=== PATIENT | male | born 1970 | race Caucasian/White ===

== ENCOUNTER → 2021-09-27 09:22 | Outpatient (BNVA) | payer BC, SELFPAY | PROVIDERS: Visit Provider Nurse Practitioner Family | DX: Z20.822 Contact with and (suspected) exposure to COVID-19 (principal) | CPT/HCPCS: 87635 ==

== ENCOUNTER → 2022-08-17 09:22 | Outpatient (BNVA) | payer BC, SELFPAY | PROVIDERS: PCP Clinical Nurse Specialist Adult Health; Visit Provider Clinical Nurse Specialist Adult Health | DX: B34.9 Viral infection, unspecified (principal); J02.9 Acute pharyngitis, unspecified; J44.1 Chronic obstructive pulmonary disease with (acute) exacerbation | CPT/HCPCS: 87400; 87880 ==

== ENCOUNTER 2022-09-14 08:14 | Emergency (ER) | payer BC, SELFPAY ==
[2022-09-14 08:21] VITALS: BP 125/82; PULSE 77; RESP 18; TEMP 36.8; O2SAT 98; BMI 29.3
[2022-09-14 08:26] VITALS: BP 121/80; PULSE 69; RESP 16; O2SAT 98
--- NOTE | 2022-09-14 08:47 | CTR_ITS ---
PROCEDURE INFORMATION: Exam: CT Abdomen And Pelvis With Contrast Exam date and time: 09/14/2022 8:53 AM Age: 51 years old Clinical indication: Nausea; Abdominal pain; Localized; Left upper quadrant (luq); Prior surgery; Surgery type: Spinal stimulator; Additional info: Luq pain, nausea and blood in stool TECHNIQUE: Imaging protocol: Computed tomography of the abdomen and pelvis with contrast. Radiation optimization: All CT scans at this facility use at least one of these dose optimization techniques: automated exposure control; mA and/or kV adjustment per patient size (includes targeted exams where dose is matched to clinical indication); or iterative reconstruction. Contrast material: OMNI 350; Contrast volume: 100 ml; Contrast route: INTRAVENOUS (IV); COMPARISON: No relevant prior studies available. RADIATION DOSE METRICS: Total DLP (mGy-cm): 848.09 FINDINGS: Tubes, catheters and devices: Neurostimulator wires are present in the thoracic canal. Liver: Normal. No mass. Gallbladder and bile ducts: Cholecystectomy. Normal bile ducts. Pancreas: Normal. No ductal dilation. Spleen: Normal. No splenomegaly. Adrenal glands: Normal. No mass. Kidneys and ureters: Normal. No hydronephrosis. Stomach and bowel: There are few sigmoid diverticuli. No diverticulitis. No bowel obstruction or dilatation. Appendix: No evidence of appendicitis. Intraperitoneal space: Unremarkable. No free air. No significant fluid collection. Vasculature: Unremarkable. No abdominal aortic aneurysm. Lymph nodes: Unremarkable. No enlarged lymph nodes. Urinary bladder: Unremarkable as visualized. Reproductive: Unremarkable as visualized. Bones/joints: Chronic degenerative changes are present in the spine. No acute bony abnormality. Soft tissues: Unremarkable. CT/CT abdomen pelvis w con* [id number] IMPRESSION: No acute abnormality.
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
[2022-09-14 08:55] LABS: Basophils % 0.4 %; Eosinophils # 0.2 10^3/uL (0.0-0.8); Eosinophils % 1.4 %; Hematocrit 46.1 % (42.0-52.0); Hemoglobin 15.3 g/dL (11.7-16.6); Lymphocytes # 2.3 10^3/uL (0.8-4.8); Lymphocytes % 20.5 %; Mean Corpuscular HGB Conc 33.2 g/dL (30.0-36.0); Mean Corpuscular Hemoglobin 32.2 pg (28.0-34.0); Mean Corpuscular Volume 97.1 fl (80-94); Mean Platelet Volume 11.6 fL (7.4-10.4); Monocytes # 0.7 10^3/uL (0.2-0.9); Monocytes % 5.8 %; Neutrophils % 71.5 %; Nucleated Red Blood Cells % 0 %; Platelet Count 238 10^3/cmm (130-400); Red Blood Count 4.75 10^6/uL (4.1-5.3); Red Cell Distribution Width 13.6 % (12.1-15.1); White Blood Count 11.3 10^3/uL (4.0-10.0)
[2022-09-14] MEDS: iohexol 350 mg/mL 500 mL Btl (per mL) IV (08:57)
[2022-09-14 09:12] VITALS: RESP 16; O2SAT 98
[2022-09-14] MEDS: ondansetron 2 mg/ML SDV 2 mL 4 MG IVP (09:12)
[2022-09-14] MEDS: morphine 4 mg/mL SDV 1 mL IVP (09:12)
[2022-09-14] MEDS: sodium chloride 0.9% 1,000 ML 999 ML IV (09:12)
[2022-09-14 09:16] LABS: Alanine Aminotransferase 19 U/L (0-41); Albumin Level 4.7 g/dL (3.5-5.2); Alkaline Phosphatase 83 U/L (40-130); Anion Gap 13.4 (5-19); Aspartate Amino Transferase 21 U/L (0-40); Blood Urea Nitrogen 13 mg/dL (6-20); Calcium 9.3 mg/dL (8.5-10.5); Carbon Dioxide 24 mmol/L (22-29); Chloride 105 mmol/L (98-107); Creatinine Clr Calc Pharmacy 147.4604; Globulin 2.4 g/dL (1.3-4.6); Glomerular Filtration Rate 102.7 mL/min (90-130); Glucose 88 mg/dL (65-115); Lipase 35 U/L (13-60); Osmolality Calculated 286 mOsm/kg (285-295); Potassium 4.4 mmol/L (3.5-5.1); Sodium 138 mmol/L (136-145); Total Bilirubin 0.3 mg/dL (0.15-1.2); Total Protein 7.1 g/dL (6.6-8.7)
[2022-09-14 09:23] VITALS: BP 129/86; PULSE 51; RESP 16; O2SAT 100
[2022-09-14 09:26] LABS: Add Urine Microscopic? NO; Charge for UA Resulting for Rev
[2022-09-14 09:31] LABS: Bilirubin Urine Neg (Negative); Blood Urine Neg (Negative); Glucose Urine UA Norm (Normal); Ketones Urine Negative (Negative); Leukocyte Esterase Urine Negative (Negative); Nitrate Urine Negative (Negative); Protein Urine Neg (Negative); Specific Gravity, Urine 1.015 (1.005-1.030); Urine Appearance Clear (CLEAR); Urine Color Yellow (Yellow); Urobilinogen Urine Norm (Negative); pH Urine 6 (5-7)
[2022-09-14] MEDS: ketorolac 30 mg/mL INJ IVP (09:47)
[2022-09-14] MEDS: orphenadrine 30 mg/mL Inj 2 mL 60 MG IVP (09:47)
[2022-09-14 10:03] VITALS: BP 146/85; PULSE 57; RESP 16; O2SAT 99
== END 2022-09-14 10:05 | disposition home or self-care (01) ==
PROVIDERS: Emergency Provider Physician Assistant; PCP Clinical Nurse Specialist Adult Health
DX: R10.12 Left upper quadrant pain (principal); J44.9 Chronic obstructive pulmonary disease, unspecified; E78.5 Hyperlipidemia, unspecified; F17.210 Nicotine dependence, cigarettes, uncomplicated
CPT/HCPCS: 74177; 80053; 81003; 83690; 85025; 96361; 96374; 96375; 99285; J1885; J2270; J2360; J2405; J7030; Q9967

== ENCOUNTER → 2023-04-05 16:07 | Outpatient (BNVA) | payer SELFPAY | PROVIDERS: PCP Clinical Nurse Specialist Adult Health; Visit Provider Clinical Nurse Specialist Adult Health | DX: J44.1 Chronic obstructive pulmonary disease with (acute) exacerbation (principal) | CPT/HCPCS: 80053; 80061; 85025 ==

== ENCOUNTER → 2023-05-31 11:16 | Outpatient (BNVA) | payer SELFPAY | PROVIDERS: PCP Clinical Nurse Specialist Adult Health; Visit Provider Clinical Nurse Specialist Adult Health | DX: J06.9 Acute upper respiratory infection, unspecified (principal) | CPT/HCPCS: 87426 ==

== ENCOUNTER 2023-06-13 10:02 | Emergency (ER) | payer BC, SELFPAY ==
[2023-06-13 10:02] VITALS: BP 138/84; PULSE 59; RESP 14; TEMP 36.7; O2SAT 96; BMI 29.9
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
[2023-06-13 10:24] VITALS: BP 138/84; PULSE 56; RESP 16; O2SAT 97
[2023-06-13 10:33] LABS: Basophils % 0.3 %; Eosinophils # 0.2 10^3/uL (0.0-0.8); Eosinophils % 1.3 %; Hematocrit 41.1 % (37-53); Lymphocytes # 2.2 10^3/uL (0.8-4.8); Lymphocytes % 18.7 %; Mean Corpuscular Hemoglobin 32.9 pg (27-33); Mean Corpuscular Volume 93.8 fl (82-101); Mean Platelet Volume 10.9 fL (7.4-10.4); Monocytes # 0.5 10^3/uL (0.2-0.9); Monocytes % 4.6 %; Neutrophils # 8.69 10^3/uL (1.8-7.7); Neutrophils % 74.8 %; Nucleated Red Blood Cells % 0 %; Platelet Count 235 10^3/cmm (157-399); Red Blood Count 4.38 10^6/uL (3.85-5.65); Red Cell Distribution Width 13.2 % (12.1-15.1); White Blood Count 11.63 10^3/uL (3.29-11.43)
[2023-06-13 10:39] VITALS: BP 131/87; PULSE 63; RESP 16; O2SAT 96
--- NOTE | 2023-06-13 10:39 | CT_ITS ---
WS: [id number] CT ABDOMEN AND PELVIS WITH CONTRAST HISTORY: abd pain, passing blood clots. TECHNIQUE: Imaging performed of the abdomen and pelvis with IV contrast. Single phase imaging of the abdomen. Coronal and sagittal reformats are submitted. All CT scans at [facility] use at [address] one of these dose optimization techniques: automated exposure control; mA and/or kV adjustment per patient size (includes targeted exams where dose is matched to clinical indication); or iterative re construction. IV CONTRAST: Omnipaque 350; 100 mL IV. Oral contrast: No DLP: 772.31 mGy.cm COMPARISON: 09/14/2022 Lower thorax: Lung bases are clear. Heart is normal size. No hiatal hernia. Liver/biliary system: Normal size with no intrahepatic dilatation. Gallbladder: Cholecystectomy. Pancreas: Normal size pancreas and pancreatic duct. No adjacent inflammation. Spleen: Normal size spleen. No mass or infarct. Adrenal glands: Normal. Right kidney: Normal. Left kidney: Normal. Aorta: Mild atherosclerosis with no aneurysm. Lymphadenopathy: None. Free fluid: None. GI tract: No obstruction. No blush like areas of active extravasation or enhancement identified. Mild distal colonic diverticular burden. No evidence for acute diverticulitis. Increasing fecal content i n the cecum. Appendix is not identified. Abdominal wall: Unremarkable abdominal wall. No hernia. Pelvis: No free fluid or adenopathy within the pelvis. Normal size prostate gland with central calcif ications. Bones: Unremarkable. IMPRESSION: 1. No acute abdominal or pelvic abnormalities. 2. No active bleeding or hemorrhage identified within the GI tract and no obstruction. 3. Prior cholecystectomy.
[2023-06-13 10:45] LABS: INR 1.08 (0.8-1.2)
[2023-06-13 10:46] LABS: Partial Thromboplastin Time 31.6 SECONDS (23.9-36.7)
[2023-06-13 10:50] LABS: Alanine Aminotransferase 14 U/L (0-41); Albumin Level 4.8 g/dL (3.5-5.2); Alkaline Phosphatase 72 U/L (40-130); Anion Gap 17.8 (5-19); Aspartate Amino Transferase 26 U/L (0-40); Blood Urea Nitrogen 17 mg/dL (6-20); Calcium 9.5 mg/dL (8.5-10.5); Carbon Dioxide 20 mmol/L (22-29); Chloride 108 mmol/L (98-107); Globulin 2.5 g/dL (1.3-4.6); Glomerular Filtration Rate 102.3 mL/min (90-130); Glucose 108 mg/dL (65-115); Osmolality Calculated 296 mOsm/kg (285-295); Potassium 3.8 mmol/L (3.5-5.1); Sodium 142 mmol/L (136-145); Total Bilirubin 0.6 mg/dL (0.15-1.2); Total Protein 7.3 g/dL (6.6-8.7)
--- NOTE | 2023-06-13 11:03 | PC.PHAR ---
pt states he takes care of his own medications-pt states he finished his doxycycline hyclate 100mg bid rx written on 05/31/23 and prednisone 20mg titrating dose written on 05/31/23 vandanat states the pt never picked up those two medications but did sisal picker the ultram 50mg written on 05/25/23 12d/s--pt states he still has carafate 1g and takes qid prn-pt states he takes protonix 40mg daily melbas states not filled since 2021 but states has rx on hold from 11/05/22-pt states he stop taking his lipitor 10mg daily ext shows last filled 12/05/22 90d/s-
[2023-06-13] MEDS: iohexol 350 mg/mL 500 mL Btl (per mL) IV (11:18)
== END 2023-06-13 13:00 | disposition home or self-care (01) ==
PROVIDERS: Emergency Provider Family Medicine; PCP Clinical Nurse Specialist Adult Health
DX: K57.31 Diverticulosis of large intestine without perforation or abscess with bleeding (principal); J44.9 Chronic obstructive pulmonary disease, unspecified; E78.5 Hyperlipidemia, unspecified; F17.210 Nicotine dependence, cigarettes, uncomplicated
CPT/HCPCS: 36415; 74177; 80053; 85025; 85610; 85730; 99285; Q9967

== ENCOUNTER → 2023-06-27 15:57 | Outpatient (BNVA) | payer SELFPAY | PROVIDERS: PCP Clinical Nurse Specialist Adult Health; Visit Provider Clinical Nurse Specialist Adult Health | DX: J20.9 Acute bronchitis, unspecified (principal); K57.30 Diverticulosis of large intestine without perforation or abscess without bleeding | CPT/HCPCS: 85014; 85018 ==

== ENCOUNTER 2024-03-25 10:35 | Emergency (ER) | payer SELFPAY ==
--- NOTE | 2024-03-25 10:36 | XR_ITS ---
WS: [id number] Left shoulder, 3 views, 03/25/2024 Clinical Data: pain Comparison: None. Findings: No fractures or dislocations are seen. The AC joint is normal. The adjacent left clavicle, left scapu la and ribs are normal. The soft tissues are unremarkable. There are epidural stimulator leads ending in the mid thoracic space. XR/XR shoulder LT min 2V* [id number] Impression: Negative left shoulder.
[2024-03-25 11:02] VITALS: BP 160/72; PULSE 72; RESP 17; TEMP 36.7; O2SAT 96; BMI 28.1
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
[2024-03-25 14:11] VITALS: BP 154/76; PULSE 71; RESP 16; TEMP 36.7; O2SAT 98
== END 2024-03-25 13:17 | disposition home or self-care (01) ==
PROVIDERS: Emergency Provider Physician Assistant; PCP Clinical Nurse Specialist Adult Health
DX: S49.92XA Unspecified injury of left shoulder and upper arm, initial encounter (principal); J44.9 Chronic obstructive pulmonary disease, unspecified; E78.5 Hyperlipidemia, unspecified; F17.210 Nicotine dependence, cigarettes, uncomplicated; X50.9XXA Other and unspecified overexertion or strenuous movements or postures, initial encounter; Y93.16 Activity, rowing, canoeing, kayaking, rafting and tubing
CPT/HCPCS: 73030; 99283

== ENCOUNTER 2024-05-10 13:05 | Emergency (ER) | payer SELFPAY ==
[2024-05-10 13:12] VITALS: BP 118/70; PULSE 74; RESP 16; TEMP 36.9; O2SAT 98
[2024-05-10 14:53] LABS: Basophils % 0.5 %; Eosinophils # 0.2 10^3/uL (0.0-0.8); Eosinophils % 2.5 %; Hematocrit 40.7 % (37-53); Lymphocytes % 33.6 %; Mean Corpuscular HGB Conc 34.6 g/dL (30-55); Mean Corpuscular Hemoglobin 32.9 pg (27-33); Mean Corpuscular Volume 95.1 fl (82-101); Mean Platelet Volume 11.3 fL (7.4-10.4); Monocytes # 0.7 10^3/uL (0.2-0.9); Monocytes % 7.7 %; Neutrophils # 4.86 10^3/uL (1.8-7.7); Neutrophils % 55.4 %; Nucleated Red Blood Cells % 0 %; Platelet Count 235 10^3/cmm (157-399); Red Blood Count 4.28 10^6/uL (3.85-5.65); Red Cell Distribution Width 13.2 % (12.1-15.1); White Blood Count 8.78 10^3/uL (3.29-11.43)
[2024-05-10 15:11] LABS: Alanine Aminotransferase 15 U/L (0-41); Albumin Level 4.5 g/dL (3.5-5.2); Alkaline Phosphatase 80 U/L (40-130); Aspartate Amino Transferase 18 U/L (0-40); Blood Urea Nitrogen 17 mg/dL (6-20); Carbon Dioxide 24 mmol/L (22-29); Chloride 107 mmol/L (98-107); Creatinine Clr Calc Pharmacy 128.4446; Globulin 2.5 g/dL (1.3-4.6); Glucose 111 mg/dL (65-115); Osmolality Calculated 296 mOsm/kg (285-295); Sodium 142 mmol/L (136-145); Total Bilirubin 0.4 mg/dL (0.15-1.2)
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
[2024-05-10 15:21] LABS: INR 1.11 (0.8-1.2)
[2024-05-10 15:22] LABS: Partial Thromboplastin Time 30.7 SECONDS (23.9-36.7)
[2024-05-10 15:35] VITALS: BP 132/78; PULSE 62; RESP 16; O2SAT 95
[2024-05-10 15:44] VITALS: BP 132/78; PULSE 72; RESP 14; O2SAT 98
[2024-05-10] MEDS: sucralfate 1 gm Tablet PO (15:44)
[2024-05-10] MEDS: famotidine 20 mg Tablet 40 MG PO (15:44)
[2024-05-10 15:48] VITALS: BP 132/78; PULSE 72; RESP 14; TEMP 36.9; O2SAT 98
== END 2024-05-10 15:47 | disposition home or self-care (01) ==
PROVIDERS: Emergency Provider Emergency Medicine; PCP Clinical Nurse Specialist Adult Health
DX: K21.9 Gastro-esophageal reflux disease without esophagitis (principal); K92.1 Melena; J44.9 Chronic obstructive pulmonary disease, unspecified; E78.5 Hyperlipidemia, unspecified; F17.210 Nicotine dependence, cigarettes, uncomplicated
CPT/HCPCS: 36415; 80053; 85025; 85610; 85730; 86850; 86900; 99283

== ENCOUNTER 2024-06-17 14:17 | Emergency (ER) | payer OTHER, SELFPAY ==
[2024-06-17 14:19] VITALS: BP 138/92; PULSE 87; TEMP 36.6; O2SAT 96; BMI 29.7
[2024-06-17 15:23] LABS: Alanine Aminotransferase 13 U/L (0-41); Albumin Level 4.4 g/dL (3.5-5.2); Alkaline Phosphatase 81 U/L (40-130); Aspartate Amino Transferase 15 U/L (0-40); Blood Urea Nitrogen 21 mg/dL (6-20); Calcium 9.1 mg/dL (8.5-10.5); Carbon Dioxide 24 mmol/L (22-29); Chloride 104 mmol/L (98-107); Creatinine Clr Calc Pharmacy 116.0486; Globulin 2.6 g/dL (1.3-4.6); Glomerular Filtration Rate 78.8 mL/min (90-130); Glucose 91 mg/dL (65-115); Osmolality Calculated 293 mOsm/kg (285-295); Sodium 140 mmol/L (136-145); Total Bilirubin 0.2 mg/dL (0.15-1.2)
[2024-06-17 15:39] LABS: Basophils # 0.1 10^3/uL (0.0-0.1); Basophils % 0.4 %; Eosinophils # 0.1 10^3/uL (0.0-0.8); Hematocrit 42.8 % (37-53); Lymphocytes # 4.6 10^3/uL (0.8-4.8); Lymphocytes % 34.6 %; Mean Corpuscular HGB Conc 34.1 g/dL (30-55); Mean Corpuscular Hemoglobin 33.1 pg (27-33); Mean Corpuscular Volume 97.1 fl (82-101); Mean Platelet Volume 11.4 fL (7.4-10.4); Monocytes # 0.9 10^3/uL (0.2-0.9); Monocytes % 6.6 %; Neutrophils # 7.57 10^3/uL (1.8-7.7); Neutrophils % 56.7 %; Nucleated Red Blood Cells % 0 %; Platelet Count 239 10^3/cmm (157-399); Red Blood Count 4.41 10^6/uL (3.85-5.65); Red Cell Distribution Width 13.6 % (12.1-15.1); White Blood Count 13.36 10^3/uL (3.29-11.43)
--- NOTE | 2024-06-17 16:39 | CTR_ITS ---
PROCEDURE INFORMATION: Exam: CT Abdomen And Pelvis With Contrast Exam date and time: 06/17/2024 5:22 PM Age: 53 years old Clinical indication: Abdominal pain; Additional info: Abd pain TECHNIQUE: Imaging protocol: Computed tomography of the abdomen and pelvis with contrast. Radiation optimization: All CT scans at this facility use at least one of these dose optimization techniques: automated exposure control; mA and/or kV adjustment per patient size (includes targeted exams where dose is matched to clinical indication); or iterative reconstruction. Contrast material: OMNI 350; Contrast volume: 100 ml; Contrast route: INTRAVENOUS (IV); COMPARISON: CT abdomen pelvis w con* [id number] 06/13/2023 11:14 AM RADIATION DOSE METRICS: Total DLP (mGy-cm): 901 FINDINGS: Tubes, catheters and devices: Left flank stimulator with spinal canal leads which course cranially off the field of view. Lungs: Mild dependent atelectasis in bilateral lower lobes. Liver: Normal. No mass. Gallbladder and biliary ducts: Status post cholecystectomy. Prominent common bile duct is similar to prior and likely related to prior cholecystectomy. Pancreas: Normal. No ductal dilation. Spleen: Normal. No splenomegaly. Adrenal glands: Normal. No mass. Kidneys and ureters: Normal. No hydronephrosis. Stomach and bowel: Sigmoid diverticulosis without evidence of acute diverticulitis. Appendix: No evidence of appendicitis. Intraperitoneal space: Unremarkable. No free air. No significant fluid collection. Vasculature: Mild aortoiliac calcifications. No aortic aneurysm. Lymph nodes: Unremarkable. No enlarged lymph nodes. Urinary bladder: Unremarkable as visualized. Reproductive: Unremarkable as visualized. Bones/joints: Moderate degenerative disc disease most pronounced at L4-L5 and L5-S1. Soft tissues: Unremarkable. CT/CT abdomen pelvis w con* [id number] IMPRESSION: 1. No acute findings in the abdomen/pelvis. 2. Prior cholecystectomy. 3. Sigmoid diverticulosis without acute diverticulitis.
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
[2024-06-17] MEDS: iohexol 350 mg/mL 500 mL Btl (per mL) IV (17:25)
[2024-06-17 18:00] VITALS: BP 152/102; PULSE 59; O2SAT 95
[2024-06-17 18:30] VITALS: BP 136/91; PULSE 62; O2SAT 97
[2024-06-17 19:00] VITALS: BP 150/92; O2SAT 96
[2024-06-17 19:30] VITALS: BP 145/90; PULSE 55; O2SAT 98
[2024-06-17 19:42] VITALS: BP 145/90; PULSE 60; O2SAT 98
== END 2024-06-17 19:45 | disposition home or self-care (01) ==
PROVIDERS: Emergency Medicine; Emergency Provider Family Medicine; PCP Clinical Nurse Specialist Adult Health
DX: K92.2 Gastrointestinal hemorrhage, unspecified (principal)
CPT/HCPCS: 36415; 74177; 80053; 85025; 85610; 99285

== ENCOUNTER 2024-10-03 10:15 | Emergency (ER) | payer OTHER, SELFPAY ==
[2024-10-03 10:25] VITALS: BP 127/49; PULSE 62; RESP 18; TEMP 36.6; O2SAT 98; BMI 31.2
--- NOTE | 2024-10-03 10:39 | CT_ITS ---
WS: [id number] CT ABDOMEN PELVIS TECHNIQUE: Contrast-enhanced CT of the abdomen and pelvis with coronal and sagittal reformatted image s. CLINICAL INFORMATION: Abdominal pain COMPARISON: CT 06/17/2024 DLP: 933.[address] scans at [facility] use at least one of these dose optimization techniques: automated e xposure control; mA and/or kV adjustment per patient size (includes targeted exams where dose is matc hed to clinical indication); or iterative reconstruction. FINDINGS: Prior cholecystectomy. Mild diffuse fatty infiltration of the liver. Mild hepatomegaly. Normal portal vein and splenic vein. Adrenal glands are normal. Normal renal parenchymal enhancement. No hydroneph rosis. Normal pancreatic parenchymal enhancement. Lung bases are well aerated. Slight bibasilar atele ctasis. Normal caliber abdominal aorta. Aortic calcification. Sigmoid diverticulosis. No evidence of acute diverticulitis. Tiny fat-containing umbilical hernia. No free fluid in the abdomen or pelvis. Disc narrowing worse at L4-L5 and L5-S1 with mild disc bulging. Partially visualized spinal stimulator. CT/CT abdomen pelvis w con* [id number] IMPRESSION: 1. No acute findings in the abdomen or pelvis. 2. Mild hepatomegaly with steatosis. 3. Prior cholecystectomy. 4. No hydronephrosis in either kidney. 5. A few sigmoid diverticuli. No evidence of acute diverticulitis. 6. No other acute findings.
[2024-10-03 10:52] LABS: Basophils % 0.4 %; Eosinophils # 0.3 10^3/uL (0.0-0.8); Eosinophils % 2.8 %; Hematocrit 44.4 % (37-53); Lymphocytes # 2.7 10^3/uL (0.8-4.8); Lymphocytes % 30.5 %; Mean Corpuscular HGB Conc 33.6 g/dL (30-55); Mean Corpuscular Hemoglobin 32.3 pg (27-33); Mean Corpuscular Volume 96.3 fl (82-101); Monocytes # 0.7 10^3/uL (0.2-0.9); Monocytes % 8.3 %; Neutrophils # 5.12 10^3/uL (1.8-7.7); Neutrophils % 57.4 %; Nucleated Red Blood Cells % 0 %; Platelet Count 241 10^3/cmm (157-399); Red Blood Count 4.61 10^6/uL (3.85-5.65); Red Cell Distribution Width 13.2 % (12.1-15.1); White Blood Count 8.92 10^3/uL (3.29-11.43)
[2024-10-03] MEDS: iohexol 350 mg/mL 500 mL Btl (per mL) IV (10:56)
[2024-10-03] MEDS: famotidine 20 mg/2 mL INJ 40 MG IVP (11:05)
[2024-10-03] MEDS: ketorolac 30 mg/mL INJ IVP (11:05)
[2024-10-03] MEDS: ondansetron 2 mg/ML SDV 2 mL 4 MG IVP (11:06)
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
[2024-10-03 11:10] LABS: Alanine Aminotransferase 38 U/L (0-41); Albumin Level 4.3 g/dL (3.5-5.2); Alkaline Phosphatase 88 U/L (40-130); Anion Gap 16.9 (5-19); Aspartate Amino Transferase 28 U/L (0-40); Blood Urea Nitrogen 17 mg/dL (6-20); Calcium 9.6 mg/dL (8.5-10.5); Carbon Dioxide 22 mmol/L (22-29); Chloride 101 mmol/L (98-107); Creatinine Clr Calc Pharmacy 118.7398; Globulin 2.4 g/dL (1.3-4.6); Glomerular Filtration Rate 78.8 mL/min (90-130); Glucose 84 mg/dL (65-115); Osmolality Calculated 283 mOsm/kg (285-295); Potassium 3.9 mmol/L (3.5-5.1); Sodium 136 mmol/L (136-145); Total Bilirubin 0.3 mg/dL (0.15-1.2); Total Protein 6.7 g/dL (6.6-8.7)
[2024-10-03 11:11] LABS: Lactic Sepsis W/Reflex 1.3 mmol/L (0.5-2.2)
--- NOTE | 2024-10-03 11:56 | PC.PHAR ---
Verified with Nirali BAILON last fill dates and days supply for current med list. All meds are over a year old except Tramadol 50mg last filled 10/13/23 #45. Pt states he can no longer take nsaids due to stomach issues. Takes Tylenol for mild pain. Pt took Pantoprazole 40mg and Carafate 1 gram today.
[2024-10-03 12:46] VITALS: BP 152/84; PULSE 57; O2SAT 97
== END 2024-10-03 12:48 | disposition home or self-care (01) ==
PROVIDERS: Emergency Provider Emergency Medicine; PCP Clinical Nurse Specialist Adult Health
DX: R10.32 Left lower quadrant pain (principal); K21.9 Gastro-esophageal reflux disease without esophagitis; F17.210 Nicotine dependence, cigarettes, uncomplicated; E78.5 Hyperlipidemia, unspecified; J44.9 Chronic obstructive pulmonary disease, unspecified
CPT/HCPCS: 74177; 80053; 83605; 85025; 86140; 96374; 96375; 99285; J1885; J2405; J3490